=== PATIENT | female | born 1955 | race African-American/Black ===

== ENCOUNTER 2018-04-09 11:12 | Inpatient (IN) ==
[2018-04-09] MEDS ORDERED: PHENERGAN IV PRN (14:32)
[2018-04-09] MEDS ORDERED: ZOFRAN 16 MG in NS 100 ML IV ONE (15:00)
[2018-04-09] MEDS ORDERED: BENADRYL 25 MG in NS 100 ML INJ ONE (15:00)
[2018-04-09] MEDS ORDERED: TYLENOL PO ONE (15:00)
[2018-04-09] MEDS: MAGNESIUM SULFATE 2 GM/S.W.I. 2 GM/50 ML IVPB IV SCH (15:04)
[2018-04-09] MEDS ORDERED: NS IV ONE ×2 (15:30→18:30)
[2018-04-09] MEDS ORDERED: [UNRECOGNIZED DRUG - OTHER] IV ONE (15:30)
[2018-04-09] MEDS ORDERED: DECADRON 20 MG in NS 100 ML IV ONE (16:00)
[2018-04-09] MEDS ORDERED: ATROPINE IV ONE (16:30)
[2018-04-09] MEDS ORDERED: D5W IV ONE ×2 (16:30)
[2018-04-09] MEDS ORDERED: [UNRECOGNIZED DRUG - OTHER] IV ONE (16:30)
[2018-04-09] MEDS ORDERED: CAMPTOSAR IV ONE (16:30)
[2018-04-09] MEDS ORDERED: [UNRECOGNIZED DRUG - OTHER] IV ONE (18:30)
[2018-04-09] MEDS ORDERED: 5-FU IV ONE (18:30)
[2018-04-10] MEDS ORDERED: [UNRECOGNIZED DRUG - OTHER] IV ONE (16:30)
[2018-04-10] MEDS ORDERED: NS IV ONE (16:30)
[2018-04-10] MEDS ORDERED: 5-FU IV ONE (16:30)
[2018-04-10] MEDS ORDERED: ZOFRAN 16 MG in NS 100 ML IV ONE (17:00)
[2018-04-10] MEDS: MAGNESIUM SULFATE 2 GM/S.W.I. 2 GM/50 ML IVPB IV SCH (22:21)
--- NOTE | 2018-04-10 22:52 | HEMO/ONC PROGRESS NOTE ---
DATE: 04/10/2018 SUBJECTIVE: The patient reports that she is doing well. She has started chemotherapy. She denies any complaints at the current time. PHYSICAL EXAMINATION: Vital Signs: Afebrile. Vital signs are stable. HEENT: Eyes anicteric. Mucous membranes are moist. Cardiac: Regular rate and rhythm. Normal S1, S2. Chest: Clear to auscultation. Abdomen: Soft, nontender, without hepatosplenomegaly or masses. Extremities: No cyanosis, clubbing, or edema. ASSESSMENT AND PLAN: 1. Metastatic Colon cancer: She will receive next cycle of chemotherapy. Monitor for side effects. 2. Chemotherapy-induced anemia: She continues on procrit per protocol. 3. Antiemetic prophylaxis: Zofran and decadron cc: Shaun Aguiar MD MTDD
[2018-04-11] MEDS ORDERED: SODIUM CHLORIDE 0.9% INJ PRN (16:00)
[2018-04-11] MEDS ORDERED: REGLAN IV PRN (16:00)
[2018-04-11 21:05] VITALS: BP 121/88
== END 2018-04-11 21:33 | disposition home or self-care (01) | DRG 847 ==
LOC: DIRADM 11:12 → 3N 11:45
PROVIDERS: ADMIT Internal Medicine Medical Oncology; ATTEND Internal Medicine Medical Oncology
CPT/HCPCS: A9270; J0461; J0641; J1200; J2405; J3475; J7030; J7060; J9190; J9205; J9206; J9303

== ENCOUNTER 2018-04-23 10:41 | Inpatient (IN) ==
[2018-04-23] MEDS ORDERED: TYLENOL PO ONE (13:00)
[2018-04-23] MEDS ORDERED: REGLAN IV PRN (13:15)
[2018-04-23] MEDS ORDERED: PHENERGAN IV PRN (13:16)
[2018-04-23] MEDS ORDERED: SODIUM CHLORIDE 0.9% INJ PRN (13:16)
[2018-04-23] MEDS ORDERED: MAGNESIUM SULFATE 2 GM/S.W.I. 2 GM/50 ML IVPB IV SCH (13:30)
[2018-04-23] MEDS: MAGNESIUM SULFATE 2 GM/S.W.I. 2 GM/50 ML IVPB IV SCH (13:31)
[2018-04-23] MEDS ORDERED: ZOFRAN 16 MG in NS 100 ML IV ONE (14:00)
[2018-04-23] MEDS ORDERED: BENADRYL 25 MG in NS 100 ML INJ ONE (14:30)
[2018-04-23] MEDS ORDERED: [UNRECOGNIZED DRUG - OTHER] IV ONE (15:00)
[2018-04-23] MEDS ORDERED: NS IV ONE ×2 (15:00→18:30)
[2018-04-23] MEDS ORDERED: DECADRON 20 MG in NS 100 ML IV ONE (15:30)
[2018-04-23] MEDS ORDERED: CAMPTOSAR IV ONE (16:00)
[2018-04-23] MEDS ORDERED: [UNRECOGNIZED DRUG - OTHER] IV ONE (16:00)
[2018-04-23] MEDS ORDERED: D5W IV ONE ×2 (16:00)
[2018-04-23] MEDS ORDERED: ATROPINE IV ONE (16:00)
[2018-04-23] MEDS ORDERED: 5-FU IV ONE (18:00)
[2018-04-23] MEDS ORDERED: [UNRECOGNIZED DRUG - OTHER] IV ONE (18:30)
--- NOTE | 2018-04-24 12:56 | HISTORY AND PHYSICAL ---
REASON FOR ADMISSION: Patient is being admitted for 3 days of chemotherapy. HISTORY OF PRESENT ILLNESS: Ms. Simeon is a 63-year-old female being admitted for 3-day round of chemotherapy. The patient has stage IV metastatic colon cancer. The patient underwent right hemicolectomy on 11/16/2017 that revealed diffuse right and left liver metastasis. CEA was originally 1629. The patient was started on FOLFIRI and Vectibix on 12/19/2017. This will be her 10th cycle of FOLFIRI and Vectibix. The patient will be receiving her 3-day treatment of 5FU at 80%, irinotecan at 70% with a Vectibix at 100%. PAST MEDICAL HISTORY: Hypertension, diarrhea, metastatic colon cancer. PAST SURGICAL HISTORY: Port-A-Cath placement. SOCIAL HISTORY: Denies any alcohol, tobacco, or illicit drug use. FAMILY HISTORY: Diabetes, hypertension, cervical cancer. ALLERGIES: Penicillins. HOME MEDICATIONS: Amlodipine, atenolol, vitamin B12, lisinopril/hydrochlorothiazide, multivitamins, and zinc. REVIEW OF SYSTEMS: Negative unless mentioned in HPI. PHYSICAL EXAM: VITAL SIGNS: Temperature 98.1 degrees, heart rate 65, respiratory rate 18, blood pressure 136/84, saturation 100% on room air. GENERAL: Patient is awake, lying in bed, no acute distress noted. HEENT: Anicteric. Pupils PERRLA. Mucosa moist. NECK: Supple. Trachea midline. No JVD. LYMPH NODE SURVEY: No palpable lymphadenopathy. CHEST: Bilateral breath sounds clear to auscultation. CARDIOVASCULAR: S1, S2. Regular rate and rhythm. ABDOMEN: Soft, nontender. Bowel sounds present in all 4 quadrants. NEUROLOGIC: Alert and oriented x3. No focal deficits noted. ASSESSMENT AND PLAN: 1. Stage IV metastatic colon cancer. The patient will receive her 5FU at 80%, irinotecan at 70%, and Vectibix at 100%. This will be her 10th cycle. Monitor for any reactions or side effects. 2. Antiemetic prophylaxis. Patient will receive her Zofran prior to treatment. Nausea has been very well controlled. Patient also has Reglan and Phenergan that she can take on a p.r.n. basis if needed. 3. Neutropenia prophylaxis: We are going to watch for fevers greater than 100.5. 4. Vectibix rash: Patient will continue moisturizers as instructed. Rash been very stable. 5. Tearing: Patient will continue with her eyedrops as instructed. We will continue to monitor. 6. Supportive care: Patient continue protein shakes and exercises while in hospital. The patient get out of bed as much as possible. Plan of care discussed with Dr. Aguiar. Dictated by MARK Pichardo for Shaun Aguiar MD cc: MARK Pichardo MD
[2018-04-24] MEDS: MAGNESIUM SULFATE 2 GM/S.W.I. 2 GM/50 ML IVPB IV SCH (13:39)
[2018-04-24] MEDS ORDERED: ZOFRAN 16 MG in NS 100 ML IV ONE (17:30)
[2018-04-24] MEDS ORDERED: NS IV ONE (18:00)
[2018-04-24] MEDS ORDERED: 5-FU IV ONE (18:00)
[2018-04-24] MEDS ORDERED: [UNRECOGNIZED DRUG - OTHER] IV ONE (18:00)
--- NOTE | 2018-04-25 16:13 | DISCHARGE SUMMARY ---
ADMISSION DATE: 04/23/2018 DISCHARGE DATE: 04/25/2018 ADMITTING DIAGNOSES: Stage IV metastatic colon cancer. SUMMARY: Patient was admitted for her 3-day course of 5-FU, irinotecan, and Vectibix. This was her 10th cycle of treatment. Patient tolerated treatments very well. The patient had no complaints. The patient will be discharged home to follow up in clinic. DISCHARGE MEDICATIONS: Patient will continue on home medications she was on prior to visit. FOLLOWUP: The patient will follow up in office weekly for continue patient with lab work and for continuous monitoring. The patient will call office for fevers or for any complications. Dictated by MARK Pichardo for Shaun Aguiar MD cc: MARK Pichardo MD [facility]
[2018-04-25 19:32] VITALS: BP 139/83
== END 2018-04-25 22:12 | disposition home or self-care (01) | DRG 847 ==
LOC: DIRADM 10:41 → 3N 11:40
PROVIDERS: ADMIT Internal Medicine Medical Oncology; ATTEND Internal Medicine Medical Oncology
CPT/HCPCS: A9270; J0461; J0641; J1200; J2405; J3475; J7030; J7060; J9190; J9205; J9206; J9303

== ENCOUNTER 2018-05-09 16:31 | Inpatient (IN) ==
[2018-05-09] MEDS ORDERED: PHENERGAN IV PRN (18:39)
[2018-05-09] MEDS ORDERED: REGLAN IV PRN (18:39)
[2018-05-09] MEDS ORDERED: SODIUM CHLORIDE 0.9% INJ PRN (18:45)
[2018-05-09] MEDS ORDERED: TYLENOL PO ONE (19:00)
[2018-05-09] MEDS ORDERED: MAGNESIUM SULFATE 2 GM/S.W.I. 2 GM/50 ML IVPB IV ONE (19:00)
[2018-05-09] MEDS ORDERED: ZOFRAN 16 MG in NS 100 ML IV ONE (20:00)
[2018-05-09] MEDS ORDERED: BENADRYL 25 MG in NS 100 ML INJ ONE (20:00)
[2018-05-09] MEDS ORDERED: [UNRECOGNIZED DRUG - OTHER] IV ONE (20:30)
[2018-05-09] MEDS ORDERED: NS IV ONE ×2 (20:30→23:30)
[2018-05-09] MEDS: ZINC SULFATE PO SCH (20:32)
[2018-05-09] MEDS ORDERED: DECADRON 20 MG in NS 100 ML IV ONE (21:00)
[2018-05-09] MEDS ORDERED: ATROPINE IV ONE (21:29)
[2018-05-09] MEDS ORDERED: D5W IV ONE ×2 (21:30)
[2018-05-09] MEDS ORDERED: LEUCOVORIN IV ONE (21:30)
[2018-05-09] MEDS ORDERED: CAMPTOSAR IV ONE (21:30)
[2018-05-09 22:07] LABS: URINE SOURCE CLEAN CATCH
[2018-05-09 22:55] LABS: BILIRUBIN URINE NEGATIVE (NEGATIVE); BLOOD URINE NEGATIVE (NEGATIVE); COLOR STRAW; GLUCOSE URINE NEGATIVE (NEGATIVE); KETONE URINE NEGATIVE (NEGATIVE); LEUKOCYTES URINE NEGATIVE (NEGATIVE); NITRITE URINE NEGATIVE (NEGATIVE); PH URINE 7.5; PROTEIN URINE NEGATIVE (NEGATIVE); SP GRAVITY URINE 1.008; TURBIDITY URINE CLEAR (CLEAR); UR EPITHELIAL CELLS <10 /HPF (<10); URINE BACTERIA NEGATIVE /HPF; URINE RBC <10 /HPF (<10); URINE WBC <10 /HPF (<10); UROBILINOGEN URINE NORMAL (NORMAL)
[2018-05-09] MEDS ORDERED: [UNRECOGNIZED DRUG - OTHER] IV ONE (23:30)
[2018-05-09] MEDS ORDERED: 5-FU IV ONE (23:30)
[2018-05-10] MEDS: THERA M PLUS PO SCH (09:47)
[2018-05-10] MEDS: VITAMIN B-12 PO SCH (09:47)
[2018-05-10] MEDS: ZINC SULFATE PO SCH ×2 (09:47→20:41)
--- NOTE | 2018-05-10 09:56 | HISTORY AND PHYSICAL ---
REASON FOR ADMISSION: The patient admitted for 3 days of chemotherapy. HISTORY OF PRESENT ILLNESS: Ms. Simeon is a 63-year-old female admitted for 3 days of chemotherapy. The patient has stage IV metastatic colon cancer. The patient underwent right hemicolectomy on 11/17/2007 that revealed diffuse right and left liver metastasis. CEA was originally 1629. The patient was started on FOLFIRI and Vectibix. The patient has responded extremely well to her chemotherapy. CEA is down to 4.1. The patient will be receiving her 3-day treatment of 5-FU at 80%, irinotecan at 80%, and her Vectibix at 100%. PAST MEDICAL HISTORY: Hypertension, diarrhea, metastatic colon cancer. PAST SURGICAL HISTORY: Port-A-Cath placement. SOCIAL HISTORY: Denies any alcohol, tobacco, or illicit drug use. FAMILY HISTORY: Diabetes, hypertension, cervical cancer. ALLERGIES: Allergic to penicillin. HOME MEDICATIONS: Amlodipine, atenolol, vitamin B 12, lisinopril/hydrochlorothiazide, multivitamins, zinc, Phenergan and Reglan. REVIEW OF SYSTEMS: Negative unless mentioned in HPI. PHYSICAL EXAM: VITAL SIGNS: Temperature 98.3 degrees, heart rate 71, respiratory rate 16, blood pressure 91/60, satting 100% on room air. GENERAL: Patient is awake, lying in bed, no acute distress noted. HEENT: Anicteric. Pupils PERRLA. Mucous membranes moist. NECK: Supple. Trachea midline. No JVD. LYMPH NODE SURVEY: No palpable lymphadenopathy. CHEST: Bilateral breath sounds. Clear to auscultation. CARDIOVASCULAR: S1, S2. Regular rate and rhythm. ABDOMEN: Soft, nontender. Bowel sounds present in all 4 quadrants. NEUROLOGICAL: Alert and oriented x3. No focal deficits noted. ASSESSMENT AND PLAN: 1. Stage IV metastatic colon cancer: The patient received her FOLFIRI at 80% of the doses. Patient received Vectibix at 100% of the doses, her limited cycle. Patient has tolerated her first cycle extremely well. We will continue to monitor for any future reactions and side effects. 2. Antiemetic prophylaxis: Patient received her Zofran prior to treatment. Nausea has been very well controlled. Patient does have Reglan and taken on an as-needed basis if needed. 3. Neutropenia prophylaxis: Continue to monitor for any fevers greater than 100.5. 4. Vectibix rash: Patient will continue to moisturize as instructed. Rash is very stable. 5. Tearing: Patient will continue eyedrops as instructed. 6. Supportive care: Patient will continue protein shakes 3 times a day. Patient will continue to get out of bed as much as possible. Dictated by MARK Pichardo for Shaun Aguiar MD Patient seen and examined. As above. Patient admitted for next cycle of chemotherapy for metastatic colon adenocarcinoma. Continue current management. Monitor for side effects. Shaun Aguiar M.D. cc: MARK Pichardo MD [facility]
[2018-05-10] MEDS: PRINZIDE 10/12.5MG PO SCH (15:58)
[2018-05-10] MEDS: NORVASC PO SCH (15:58)
[2018-05-10] MEDS: TENORMIN PO SCH (15:59)
[2018-05-10] MEDS ORDERED: ZOFRAN 16 MG in NS 100 ML IV ONE (21:30)
[2018-05-10] MEDS ORDERED: NS IV ONE (22:00)
[2018-05-10] MEDS ORDERED: [UNRECOGNIZED DRUG - OTHER] IV ONE (22:00)
[2018-05-10] MEDS ORDERED: 5-FU IV ONE (22:00)
--- NOTE | 2018-05-11 08:44 | HEMO/ONC PROGRESS NOTE ---
DATE: 05/11/2018 SUBJECTIVE: Patient continues to do well. Patient tolerating chemotherapy well at this time. Patient denies any complaints. OBJECTIVE: Vital Signs: Temperature 98.3 degrees, heart rate 65, respiratory rate 19, blood pressure 133/90, saturating 100% on room air. General: Patient is awake, lying in bed, in no acute distress noted. HEENT: Anicteric. Pupils PERRLA mucous and moist. Cardiovascular: S1, S2. Regular rate and rhythm. Chest: Bilateral breath sounds clear to auscultation. Abdomen: Soft, nontender. Bowel sounds present all 4 quadrants. Neurologic: Alert and oriented x3. No focal deficits noted. ASSESSMENT AND PLAN: 1. Metastatic colon cancer: Patient will continue her chemotherapy while in the hospital. Continue to monitor for any reactions or side effects. 2. Antiemetic prophylaxis: Patient will continue getting her Zofran prior to treatment. Nausea has been well-controlled. The patient has p.r.n. medications as needed. 3. Neutropenia precautions: Continue to monitor for any fevers greater than 100.5. 4. Anemia: Patient is on Procrit per protocol. 5. Supportive care: Patient will continue protein shakes t.i.d. Patient continue up as much possible. Patient will continue home exercises as instructed. Dictated by MARK Pichardo for Shaun Aguiar MD cc: MARK Pichardo MD
[2018-05-11] MEDS: THERA M PLUS PO SCH (09:28)
[2018-05-11] MEDS: NORVASC PO SCH (09:28)
[2018-05-11] MEDS: ZINC SULFATE PO SCH ×2 (09:28→20:04)
[2018-05-11] MEDS: VITAMIN B-12 PO SCH (09:29)
[2018-05-11] MEDS: TENORMIN PO SCH (09:29)
[2018-05-11] MEDS: PRINZIDE 10/12.5MG PO SCH (09:31)
[2018-05-11] MEDS ORDERED: REGLAN IV PRN (18:00)
[2018-05-11] MEDS ORDERED: PHENERGAN IV PRN (18:00)
[2018-05-11] MEDS ORDERED: SODIUM CHLORIDE 0.9% INJ PRN (18:00)
[2018-05-11 20:05] VITALS: BP 106/72
== END 2018-05-11 22:20 | disposition home or self-care (01) | DRG 847 ==
LOC: DIRADM 16:31 → 3N 16:35
PROVIDERS: ADMIT Internal Medicine Medical Oncology; ATTEND Internal Medicine Medical Oncology
CPT/HCPCS: 81001; A9270; J0461; J0640; J1200; J2405; J3475; J7030; J7060; J9190; J9205; J9206; J9303

== ENCOUNTER 2018-05-21 08:01 | Inpatient (IN) ==
[2018-05-21] MEDS ORDERED: REGLAN IV PRN (11:57)
[2018-05-21] MEDS ORDERED: PHENERGAN IV PRN (11:57)
[2018-05-21] MEDS ORDERED: SODIUM CHLORIDE 0.9% INJ PRN (12:00)
[2018-05-21] MEDS ORDERED: ZOFRAN 16 MG in NS 100 ML IV ONE (13:00)
[2018-05-21] MEDS ORDERED: MAGNESIUM SULFATE 2 GM/S.W.I. 2 GM/50 ML IVPB IV ONE (13:00)
[2018-05-21] MEDS ORDERED: TYLENOL PO ONE (13:00)
[2018-05-21] MEDS ORDERED: BENADRYL 25 MG in NS 100 ML INJ ONE (13:00)
[2018-05-21] MEDS ORDERED: [UNRECOGNIZED DRUG - OTHER] IV ONE (13:30)
[2018-05-21] MEDS ORDERED: NS IV ONE ×2 (13:30→17:30)
[2018-05-21] MEDS ORDERED: DECADRON 20 MG in NS 100 ML IV ONE (14:00)
[2018-05-21] MEDS ORDERED: D5W IV ONE ×2 (14:30)
[2018-05-21] MEDS ORDERED: ATROPINE IV ONE (14:30)
[2018-05-21] MEDS ORDERED: LEUCOVORIN IV ONE (14:30)
[2018-05-21] MEDS ORDERED: CAMPTOSAR IV ONE (14:30)
[2018-05-21] MEDS ORDERED: 5-FU IV ONE (17:00)
[2018-05-21] MEDS ORDERED: [UNRECOGNIZED DRUG - OTHER] IV ONE (17:30)
--- NOTE | 2018-05-21 17:57 | HISTORY AND PHYSICAL ---
REASON FOR ADMISSION: The patient is being admitted for 3 day round of chemotherapy. HISTORY OF PRESENT ILLNESS: Ms. Simeon is a 63-year-old female admitted for 3 days of chemotherapy. The patient has stage IV metastatic colon cancer. The patient underwent right hemicolectomy on 11/17/2007 that revealed diffuse right and left liver metastasis. CA was originally 1629. The patient was started on FOLFIRI and Vectibix. The patient has responded extremely well to chemotherapy. CEA is down to 4. The patient will be receiving her 3 day treatment of 5-FU at 80%, irinotecan at 80% and Vectibix at 100%. PAST MEDICAL HISTORY: Hypertension, diarrhea, metastatic colon cancer. PAST SURGICAL HISTORY: Port-A-Cath placement. SOCIAL HISTORY: Denies any alcohol, tobacco, or illicit drug use. FAMILY HISTORY: Diabetes, hypertension, cervical cancer. ALLERGIES: Allergic to penicillin. HOME MEDICATIONS: 1. Amlodipine. 2. Atenolol. 3. Vitamin B12. 4. Lisinopril/hydrochlorothiazide. 5. Multivitamin. 6. Zinc. 7. Phenergan. 8. Reglan. REVIEW OF SYSTEMS: Negative as per HPI. PHYSICAL EXAM: GENERAL: The patient is awake, lying in bed, no acute distress noted. HEENT: Anicteric. Pupils PERRLA. Oropharynx moist. CARDIOVASCULAR: S1, S2. Regular rate and rhythm. CHEST: Bilateral breath sounds. Clear to auscultation. ABDOMEN: Soft, nontender. Bowel sounds present in all 4 quadrants. NECK: Supple. Trachea midline. No JVD. LYMPH NODE SURVEY: No palpable lymphadenopathy.Neurologic: Alert and oriented x3. No focal deficits noted. ASSESSMENT AND PLAN: 1. Stage IV metastatic colon cancer: The patient will receive her FOLFIRI 80% doses. The patient will also receive Vectibix at 100% dose. The patient has tolerated her other cycles extremely well. We will continue to monitor reactions and side effects, and continue to monitor closely. 2. Antiemetic prophylaxis: The patient will continue to received Zofran prior to treatment. Nausea has been very well controlled. The patient has Reglan and Phenergan that she can take on an as-needed basis if needed. 3. Neutropenia prophylaxis. Continue to monitor for fevers greater than 100.5. 4. Vectibix rash: The patient will get moisturizers as instructed. Rash continues to be stable. 5. Tearing: The patient will continue eyedrops as instructed. 6. Supportive care: The patient will continue Procrit 3 times a day. The patient will continue to get out of bed as much as possible. The patient with continue strengthening exercises as instructed. Plan of care discussed with Dr. Aguiar. Dictated by MARK Pichardo for Shaun Aguiar MD Patient seen and examined. As above. As above. Shaun Aguiar M.D. cc: MARK Pichardo MD [facility]
[2018-05-21] MEDS ORDERED: EPOGEN SUBQ ONE (21:00)
--- NOTE | 2018-05-22 08:35 | HEMO/ONC PROGRESS NOTE ---
DATE: 05/22/2018 SUBJECTIVE: Patient continues to feel well at this time. The patient tolerated chemotherapy well. OBJECTIVE: Vital Signs: Temperature 97.8 degrees, heart rate 73, respiratory rate 18, blood pressure 110/75, saturating 97% on room air. General: Patient is awake, lying in bed, no acute distress noted. HEENT: Anicteric. Pupils PERRLA. Mucous membranes moist. Cardiovascular: S1, S2. Regular rate and rhythm. Chest: Bilateral breath sounds clear to auscultation. Abdomen: Soft, nontender. Bowel sounds present in all 4 quadrants. Neurologic: Alert and oriented x3. No focal deficits noted. ASSESSMENT AND PLAN: 1. Metastatic colon cancer: The patient will continue chemotherapy while in the hospital. Patient tolerating it well at this time. Continue to monitor for any reactions or side effects. 2. Antiemetic prophylaxis: Patient continues on Zofran prior to treatment. Nausea has been very well controlled. Patient does have p.r.n. medications if needed. 3. Neutropenia precautions: Continue to monitor for any fevers greater than 100.5. 4. Anemia: Patient will continue on Procrit per protocol. 5. Supportive care: Patient will continue protein shakes 3 times a day. Patient will continue to get out of bed as much as possible. Patient will continue to exercise as instructed. Dictated by MARK Pichardo for Shaun Aguiar MD As above. Doing well with chemotherapy. Shaun Aguiar M.D. cc: MARK Pichardo MD [facility]
[2018-05-22] MEDS ORDERED: ZOFRAN 16 MG in NS 100 ML IV ONE (17:00)
[2018-05-22] MEDS ORDERED: 5-FU IV ONE (17:30)
[2018-05-22] MEDS ORDERED: NS IV ONE (18:00)
[2018-05-22] MEDS ORDERED: [UNRECOGNIZED DRUG - OTHER] IV ONE (18:00)
[2018-05-23 15:52] VITALS: BP 127/79
== END 2018-05-23 16:55 | disposition home or self-care (01) | DRG 847 ==
LOC: DIRADM 08:01 → 3N 10:25
PROVIDERS: ADMIT Internal Medicine Medical Oncology; ATTEND Internal Medicine Medical Oncology
CPT/HCPCS: A9270; J0461; J0640; J0885; J1200; J2405; J3475; J7030; J7060; J9190; J9205; J9206; J9303